=== PATIENT | female | born 1945 | race Caucasian/White ===

== ENCOUNTER 2018-03-31 20:14 | Inpatient (IN) | payer MEDICARE ==
[~2018-03-31] VITALS: Ht 154.9 cm; Wt 56.7 kg
[2018-03-31] MEDS ORDERED: VALS320T2 PO (20:56)
[2018-03-31] MEDS ORDERED: ISOS30TA6 PO (20:56)
[2018-03-31] MEDS ORDERED: SEVEC800 PO (20:56)
[2018-03-31] MEDS ORDERED: XALA2.5OS OD (20:56)
[2018-03-31] MEDS ORDERED: OLAN5TAB2 PO (20:56)
[2018-03-31] MEDS ORDERED: OMEP20 PO (20:56)
[2018-03-31] MEDS ORDERED: DULO30CA2 PO (20:56)
[2018-03-31] MEDS ORDERED: FOLI0.8T2 PO (20:56)
[2018-03-31] MEDS ORDERED: ATOR40TA28 PO (20:56)
[2018-03-31] MEDS ORDERED: AMLO10TA55 PO (20:56)
[2018-03-31] MEDS ORDERED: ASPI-556 PO (20:56)
[2018-03-31] MEDS ORDERED: LINA5TAB PO (20:56)
[2018-03-31] MEDS ORDERED: METO50 PO (20:56)
[2018-03-31 21:45] LABS: BASOPHILS % (AUTO) 0.3 % (0.0-2.0); HEMATOCRIT 33.3 % (36-46); HEMOGLOBIN 11.4 g/dL (12.0-16.0); LYMPHOCYTES # (AUTO) 2.3 K/uL (1.0-4.8); LYMPHOCYTES % (AUTO) 21.4 % (22.0-44.0); MEAN CORPUSCULAR HEMOGLOBIN 31.3 pg (26.0-34.0); MEAN CORPUSCULAR HGB CONC 34.4 G/dL (31.0-37.0); MEAN CORPUSCULAR VOLUME 91 fL (80-100); MONOCYTES # (AUTO) 1.1 K/uL (0.1-1.0); MONOCYTES % (AUTO) 10.4 % (2.0-9.0); NEUTROPHILS % (AUTO) 63.9 % (40.0-70.0); PLATELET COUNT (AUTO) 230 K/uL (150-450); RED BLOOD CELL COUNT(AUTO) 3.65 MIL/uL (4.00-5.20); RED CELL DISTRIBUTION WIDTH 14.5 % (11.5-14.5)
[2018-03-31 22:06] LABS: ALBUMIN 3.2 g/dL (3.4-5.0); BILIRUBIN,TOTAL 0.6 mg/dL (0.1-1.0); CALCIUM, TOTAL 8.6 mg/dL (8.8-10.5); CREATININE 10.42 mg/dL (0.60-1.30)
[2018-03-31 22:40] LABS: POTASSIUM 6.6 mmol/L (3.5-5.1)
[2018-03-31] MEDS ORDERED: SODIUM BICARBONATE [ADULT] 8.4% 50 MEQ/50 ML SYRINGE IVP ONE (23:00)
[2018-03-31] MEDS ORDERED: SODIUM POLYSTYRENE SULFONATE 15 GM/60 ML SUSPENSION BOTTLE PO ONE (23:00)
[2018-03-31] MEDS ORDERED: CALCIUM GLUCONATE 100 MG/ML 10 ML IVP ONE (23:00)
[2018-03-31] MEDS ORDERED: INSULIN REGULAR, HUMAN 100 UNITS/ML IVP ONE (23:00)
[2018-03-31] MEDS ORDERED: DEXTROSE 50%-WATER 25 GM/50 ML SYRINGE IVP ONE (23:00)
[2018-03-31] MEDS ORDERED: ONDANSETRON HCL 4 MG/2 ML VIAL IVP PRN (23:30)
[2018-03-31] MEDS ORDERED: 0.9% SODIUM CHLORIDE 10 ML SYRINGE IVP PRN (23:30)
[2018-04-01] VITALS (11 sets, daily range): BP systolic 138–205; BP diastolic 43–102
[2018-04-01] MEDS ORDERED: SODIUM CHLORIDE 0.9% 1,000 ML IV ONE (01:34)
[2018-04-01] MEDS: ACETAMINOPHEN 325 MG TABLET PO PRN ×2 (03:46→08:13)
[2018-04-01] MEDS ORDERED: MORPHINE SULFATE 4 MG/ML SYRINGE IM ONE (05:30)
[2018-04-01] MEDS ORDERED: MORPHINE SULFATE 4 MG/ML SYRINGE IVP ONE (05:45)
[2018-04-01] MEDS ORDERED: METOPROLOL TARTRATE 5 MG/5 ML VIAL IVP PRN (06:15)
[2018-04-01 07:30] LABS: BASOPHILS % (AUTO) 0.1 % (0.0-2.0); CALCIUM, TOTAL 8.6 mg/dL (8.8-10.5); CREATININE 5.62 mg/dL (0.60-1.30); EOSINOPHILS % (AUTO) 1.9 % (1.0-6.0); HEMATOCRIT 29.4 % (36-46); HEMOGLOBIN 10.3 g/dL (12.0-16.0); LYMPHOCYTES # (AUTO) 1.1 K/uL (1.0-4.8); LYMPHOCYTES % (AUTO) 11.1 % (22.0-44.0); MAGNESIUM 1.9 mg/dL (1.80-2.40); MEAN CORPUSCULAR HEMOGLOBIN 31.5 pg (26.0-34.0); MEAN CORPUSCULAR VOLUME 90 fL (80-100); MONOCYTES # (AUTO) 0.9 K/uL (0.1-1.0); MONOCYTES % (AUTO) 8.8 % (2.0-9.0); NEUTROPHILS # (AUTO) 7.5 K/uL (1.8-7.7); NEUTROPHILS % (AUTO) 78.1 % (40.0-70.0); PLATELET COUNT (AUTO) 197 K/uL (150-450); POTASSIUM 3.8 mmol/L (3.5-5.1); RED BLOOD CELL COUNT(AUTO) 3.26 MIL/uL (4.00-5.20); RED CELL DISTRIBUTION WIDTH 14.5 % (11.5-14.5)
[2018-04-01] MEDS: AmLODIPine BESYLATE 10 MG TABLET PO SCH (08:12)
[2018-04-01] MEDS: OMEPRAZOLE 20 MG CAPSULE PO SCH ×2 (08:12→21:16)
[2018-04-01] MEDS: ISOSORBIDE MONONITRATE 30 MG ER TABLET PO SCH (08:12)
[2018-04-01] MEDS: METOPROLOL TARTRATE 50 MG TABLET PO SCH ×2 (08:12→21:16)
[2018-04-01] MEDS: SEVELAMER CARBONATE 800 MG TABLET PO SCH ×3 (08:12→18:00)
[2018-04-01] MEDS: ASPIRIN 81 MG EC TABLET PO SCH (08:13)
[2018-04-01] MEDS ORDERED: ONDANSETRON HCL 4 MG/2 ML VIAL IVP PRN (09:00)
[2018-04-01] MEDS ORDERED: ZOLPIDEM TARTRATE 5 MG TABLET PO PRN (09:00)
[2018-04-01] MEDS ORDERED: 0.9% SODIUM CHLORIDE 10 ML SYRINGE IVP PRN (09:00)
[2018-04-01] MEDS ORDERED: DEXTROSE 50%-WATER 25 GM/50 ML SYRINGE IVP PRN (10:45)
[2018-04-01] MEDS: OLANZapine 5 MG TABLET PO SCH ×2 (10:48→21:16)
[2018-04-01] MEDS: LinaGLIPtin 5 MG TABLET PO SCH (10:48)
[2018-04-01] MEDS: VITAMIN B COMP/VIT C/FOLIC ACID CAPSULE PO SCH (10:48)
[2018-04-01] MEDS: DULoxetine HCL 30 MG CAPSULE PO SCH (10:48)
[2018-04-01] MEDS: PANTOPRAZOLE SODIUM 40 MG/VIAL IVP SCH (10:48)
[2018-04-01] MEDS: APIXABAN 2.5 MG TABLET PO SCH ×2 (10:49→21:16)
[2018-04-01 14:13] LABS: GLUCOMETER DEV NAME(LOC) 5S 2N; GLUCOSE,POINT OF CARE 131 MG/DL (70-110)
[2018-04-01] MEDS: ATORVASTATIN CALCIUM 40 MG TABLET PO SCH (21:16)
[2018-04-01] MEDS: LATANOPROST 0.005% 2.5 ML OPHTHALMIC SOLUTION OD SCH (21:16)
[2018-04-01] MEDS ORDERED: HydrALAZINE HCL 20 MG/ML VIAL IVP PRN (22:45)
[2018-04-02 01:48] LABS: GLUCOMETER DEV NAME(LOC) 5S 2N; GLUCOSE,POINT OF CARE 119 MG/DL (70-110)
[2018-04-02 01:48] LABS: GLUCOMETER DEV NAME(LOC) 5S 2N; GLUCOSE,POINT OF CARE 156 MG/DL (70-110)
[2018-04-02 04:47] VITALS: BP 163/82
[2018-04-02] MEDS: INSULIN LISPRO 100 UNITS/ML SQ PRN ×2 (06:09→21:36)
[2018-04-02 07:03] LABS: GLUCOMETER DEV NAME(LOC) 5S 2N; GLUCOSE,POINT OF CARE 83 MG/DL (70-110)
[2018-04-02 08:46] VITALS: BP 158/77
[2018-04-02] MEDS: HydrALAZINE HCL 25 MG TABLET PO SCH ×2 (09:00→17:39)
[2018-04-02] MEDS: PANTOPRAZOLE SODIUM 40 MG/VIAL IVP SCH (09:00)
[2018-04-02] MEDS: SEVELAMER CARBONATE 800 MG TABLET PO SCH ×3 (09:04→17:39)
[2018-04-02] MEDS: APIXABAN 2.5 MG TABLET PO SCH ×2 (09:04→21:00)
[2018-04-02] MEDS: VITAMIN B COMP/VIT C/FOLIC ACID CAPSULE PO SCH (09:04)
[2018-04-02] MEDS: OLANZapine 5 MG TABLET PO SCH ×2 (09:04→21:48)
[2018-04-02] MEDS: OMEPRAZOLE 20 MG CAPSULE PO SCH ×2 (09:04→21:48)
[2018-04-02] MEDS: ASPIRIN 81 MG EC TABLET PO SCH (09:04)
[2018-04-02] MEDS: LinaGLIPtin 5 MG TABLET PO SCH (09:04)
[2018-04-02] MEDS: DULoxetine HCL 30 MG CAPSULE PO SCH (09:04)
[2018-04-02] MEDS: ISOSORBIDE MONONITRATE 30 MG ER TABLET PO SCH (09:04)
[2018-04-02] MEDS: AmLODIPine BESYLATE 10 MG TABLET PO SCH (09:04)
[2018-04-02 09:06] LABS: BASOPHILS % (AUTO) 0.3 % (0.0-2.0); EOSINOPHILS % (AUTO) 6.2 % (1.0-6.0); HEMATOCRIT 27.9 % (36-46); HEMOGLOBIN 9.8 g/dL (12.0-16.0); LYMPHOCYTES # (AUTO) 2.6 K/uL (1.0-4.8); LYMPHOCYTES % (AUTO) 28.5 % (22.0-44.0); MEAN CORPUSCULAR HEMOGLOBIN 31.9 pg (26.0-34.0); MEAN CORPUSCULAR HGB CONC 35.1 G/dL (31.0-37.0); MEAN CORPUSCULAR VOLUME 91 fL (80-100); MONOCYTES # (AUTO) 1.1 K/uL (0.1-1.0); MONOCYTES % (AUTO) 11.8 % (2.0-9.0); NEUTROPHILS # (AUTO) 4.8 K/uL (1.8-7.7); NEUTROPHILS % (AUTO) 53.2 % (40.0-70.0); PLATELET COUNT (AUTO) 215 K/uL (150-450); RED BLOOD CELL COUNT(AUTO) 3.08 MIL/uL (4.00-5.20); RED CELL DISTRIBUTION WIDTH 14.5 % (11.5-14.5)
[2018-04-02 09:30] LABS: ALBUMIN 2.6 g/dL (3.4-5.0); BILIRUBIN,TOTAL 0.5 mg/dL (0.1-1.0); CALCIUM, TOTAL 8.2 mg/dL (8.8-10.5); CREATININE 7.29 mg/dL (0.60-1.30); MAGNESIUM 2.1 mg/dL (1.80-2.40); PHOSPHORUS 7.1 mg/dL (2.5-4.9); POTASSIUM 4.7 mmol/L (3.5-5.1); TOTAL PROTEIN, SERUM 7.4 g/dL (6.4-8.2)
[2018-04-02 11:34] VITALS: BP 162/76
[2018-04-02] MEDS: METOPROLOL TARTRATE 50 MG TABLET PO SCH ×2 (12:05→21:31)
[2018-04-02 14:23] LABS: GLUCOMETER DEV NAME(LOC) 5S 2N; GLUCOSE,POINT OF CARE 94 MG/DL (70-110)
[2018-04-02] MEDS ORDERED: LIDOCAINE HCL/PF 1% 2 ML VIAL ONE (14:48)
[2018-04-02] MEDS ORDERED: DiphenhydrAMINE HCL 50 MG/ML VIAL ONE (14:48)
[2018-04-02 15:51] VITALS: BP 161/78
[2018-04-02 20:36] VITALS: BP 133/60
[2018-04-02] MEDS: LATANOPROST 0.005% 2.5 ML OPHTHALMIC SOLUTION OD SCH (21:48)
[2018-04-03] VITALS (7 sets, daily range): BP systolic 93–155; BP diastolic 55–82
[2018-04-03] MEDS: HydrALAZINE HCL 25 MG TABLET PO SCH ×4 (00:09→21:52)
[2018-04-03] MEDS: ATORVASTATIN CALCIUM 40 MG TABLET PO SCH ×2 (00:12→20:18)
[2018-04-03] MEDS: INSULIN LISPRO 100 UNITS/ML SQ PRN (06:10)
[2018-04-03 06:31] LABS: BASOPHILS % (AUTO) 0.3 % (0.0-2.0); EOSINOPHILS % (AUTO) 6.9 % (1.0-6.0); HEMATOCRIT 28.1 % (36-46); LYMPHOCYTES # (AUTO) 2.5 K/uL (1.0-4.8); LYMPHOCYTES % (AUTO) 27.7 % (22.0-44.0); MEAN CORPUSCULAR HEMOGLOBIN 32.2 pg (26.0-34.0); MEAN CORPUSCULAR HGB CONC 35.6 G/dL (31.0-37.0); MEAN CORPUSCULAR VOLUME 91 fL (80-100); MONOCYTES # (AUTO) 1.2 K/uL (0.1-1.0); MONOCYTES % (AUTO) 13.5 % (2.0-9.0); NEUTROPHILS # (AUTO) 4.7 K/uL (1.8-7.7); NEUTROPHILS % (AUTO) 51.6 % (40.0-70.0); PLATELET COUNT (AUTO) 202 K/uL (150-450); RED BLOOD CELL COUNT(AUTO) 3.11 MIL/uL (4.00-5.20); RED CELL DISTRIBUTION WIDTH 13.8 % (11.5-14.5)
[2018-04-03 07:13] LABS: ALBUMIN 2.5 g/dL (3.4-5.0); BILIRUBIN,TOTAL 0.4 mg/dL (0.1-1.0); CREATININE 3.73 mg/dL (0.60-1.30); MAGNESIUM 1.6 mg/dL (1.80-2.40); TOTAL PROTEIN, SERUM 7.1 g/dL (6.4-8.2)
[2018-04-03] MEDS: PANTOPRAZOLE SODIUM 40 MG/VIAL IVP SCH (09:00)
[2018-04-03] MEDS: APIXABAN 2.5 MG TABLET PO SCH ×2 (09:00→20:19)
[2018-04-03] MEDS: SEVELAMER CARBONATE 800 MG TABLET PO SCH ×3 (09:37→18:30)
[2018-04-03] MEDS: METOPROLOL TARTRATE 50 MG TABLET PO SCH ×2 (09:37→20:19)
[2018-04-03] MEDS: OLANZapine 5 MG TABLET PO SCH ×2 (09:38→20:19)
[2018-04-03] MEDS: LinaGLIPtin 5 MG TABLET PO SCH (09:38)
[2018-04-03] MEDS: OMEPRAZOLE 20 MG CAPSULE PO SCH ×2 (09:38→20:18)
[2018-04-03] MEDS: ASPIRIN 81 MG EC TABLET PO SCH (09:38)
[2018-04-03] MEDS: DULoxetine HCL 30 MG CAPSULE PO SCH (09:39)
[2018-04-03] MEDS: VITAMIN B COMP/VIT C/FOLIC ACID CAPSULE PO SCH (09:42)
[2018-04-03] MEDS: ISOSORBIDE MONONITRATE 30 MG ER TABLET PO SCH (09:42)
[2018-04-03] MEDS: AmLODIPine BESYLATE 10 MG TABLET PO SCH (10:48)
[2018-04-03 10:57] LABS: GLUCOMETER DEV NAME(LOC) 5N 1P; GLUCOSE,POINT OF CARE 79 MG/DL (70-110)
[2018-04-03 11:38] LABS: GLUCOMETER DEV NAME(LOC) 5S 2N; GLUCOSE,POINT OF CARE 88 MG/DL (70-110)
[2018-04-03 11:38] LABS: GLUCOMETER DEV NAME(LOC) 5S 2N; GLUCOSE,POINT OF CARE 157 MG/DL (70-110)
[2018-04-03 11:58] LABS: GLUCOMETER DEV NAME(LOC) 5S 1M; GLUCOSE,POINT OF CARE 157 MG/DL (70-110)
[2018-04-03] MEDS: LATANOPROST 0.005% 2.5 ML OPHTHALMIC SOLUTION OD SCH (20:21)
[2018-04-04 00:28] VITALS: BP 134/72
[2018-04-04 04:18] VITALS: BP 114/49
[2018-04-04 07:11] LABS: ALBUMIN 2.4 g/dL (3.4-5.0); BILIRUBIN,TOTAL 0.3 mg/dL (0.1-1.0); CALCIUM, TOTAL 7.7 mg/dL (8.8-10.5); CREATININE 5.29 mg/dL (0.60-1.30); MAGNESIUM 1.7 mg/dL (1.80-2.40); TOTAL PROTEIN, SERUM 6.6 g/dL (6.4-8.2)
[2018-04-04 07:18] LABS: BASOPHILS % (AUTO) 0.2 % (0.0-2.0); EOSINOPHILS % (AUTO) 8.3 % (1.0-6.0); HEMATOCRIT 25.3 % (36-46); HEMOGLOBIN 8.7 g/dL (12.0-16.0); LYMPHOCYTES # (AUTO) 2.8 K/uL (1.0-4.8); LYMPHOCYTES % (AUTO) 33.4 % (22.0-44.0); MEAN CORPUSCULAR HEMOGLOBIN 31.1 pg (26.0-34.0); MEAN CORPUSCULAR HGB CONC 34.5 G/dL (31.0-37.0); MEAN CORPUSCULAR VOLUME 90 fL (80-100); MONOCYTES % (AUTO) 12.1 % (2.0-9.0); NEUTROPHILS # (AUTO) 3.8 K/uL (1.8-7.7); PLATELET COUNT (AUTO) 191 K/uL (150-450); RED BLOOD CELL COUNT(AUTO) 2.81 MIL/uL (4.00-5.20)
[2018-04-04 07:27] LABS: GLUCOMETER DEV NAME(LOC) 5N 2S; GLUCOSE,POINT OF CARE 80 MG/DL (70-110)
[2018-04-04 07:27] LABS: GLUCOMETER DEV NAME(LOC) 5N 1P; GLUCOSE,POINT OF CARE 135 MG/DL (70-110)
[2018-04-04 07:27] LABS: GLUCOMETER DEV NAME(LOC) 5N 1P; GLUCOSE,POINT OF CARE 89 MG/DL (70-110)
[2018-04-04 07:50] VITALS: BP 180/78
[2018-04-04] MEDS: PANTOPRAZOLE SODIUM 40 MG/VIAL IVP SCH (09:00)
[2018-04-04] MEDS: HydrALAZINE HCL 25 MG TABLET PO SCH ×2 (09:00→15:46)
[2018-04-04] MEDS: ASPIRIN 81 MG EC TABLET PO SCH (09:00)
[2018-04-04] MEDS: OLANZapine 5 MG TABLET PO SCH (09:26)
[2018-04-04] MEDS: VITAMIN B COMP/VIT C/FOLIC ACID CAPSULE PO SCH (09:26)
[2018-04-04] MEDS: SEVELAMER CARBONATE 800 MG TABLET PO SCH ×3 (09:26→18:05)
[2018-04-04] MEDS: DULoxetine HCL 30 MG CAPSULE PO SCH (09:27)
[2018-04-04] MEDS: LinaGLIPtin 5 MG TABLET PO SCH (09:27)
[2018-04-04] MEDS: OMEPRAZOLE 20 MG CAPSULE PO SCH (09:27)
[2018-04-04] MEDS ORDERED: EPOETIN ALFA 10,000 UNITS/ML VIAL SQ SCH (11:00)
[2018-04-04 11:17] VITALS: BP 179/77
[2018-04-04 12:32] LABS: GLUCOMETER DEV NAME(LOC) 5N 1P; GLUCOSE,POINT OF CARE 106 MG/DL (70-110)
[2018-04-04] MEDS: ISOSORBIDE MONONITRATE 30 MG ER TABLET PO SCH (13:24)
[2018-04-04] MEDS: METOPROLOL TARTRATE 50 MG TABLET PO SCH (13:24)
[2018-04-04 15:14] VITALS: BP 134/64
[2018-04-04] MEDS: AmLODIPine BESYLATE 10 MG TABLET PO SCH (15:46)
[2018-04-04 20:27] LABS: GLUCOMETER DEV NAME(LOC) 5S 1M; GLUCOSE,POINT OF CARE 136 MG/DL (70-110)
== END 2018-04-04 18:50 | DRG 640 ==
LOC: EMS 20:14 → 5N 23:45
PROVIDERS: ADMIT Internal Medicine; ATTEND Internal Medicine
PROC: 5A1D70Z Performance of Urinary Filtration, Intermittent, Less than 6 Hours Per Day (ICD-10-PCS; principal; 2018-04-01)
PROC: 5A1D70Z Performance of Urinary Filtration, Intermittent, Less than 6 Hours Per Day (ICD-10-PCS; 2018-04-02)
PROC: 5A1D70Z Performance of Urinary Filtration, Intermittent, Less than 6 Hours Per Day (ICD-10-PCS; 2018-04-04)
DX: E87.5 Hyperkalemia (principal); N18.6 End stage renal disease; I13.2 Hypertensive heart and chronic kidney disease with heart failure and with stage 5 chronic kidney disease, or end stage renal disease; G93.41 Metabolic encephalopathy; E11.21 Type 2 diabetes mellitus with diabetic nephropathy; E11.51 Type 2 diabetes mellitus with diabetic peripheral angiopathy without gangrene; I48.0 Paroxysmal atrial fibrillation; E11.22 Type 2 diabetes mellitus with diabetic chronic kidney disease; H54.8 Legal blindness, as defined in USA; I25.10 Atherosclerotic heart disease of native coronary artery without angina pectoris; D63.1 Anemia in chronic kidney disease; E78.00 Pure hypercholesterolemia, unspecified; E78.5 Hyperlipidemia, unspecified; I50.9 Heart failure, unspecified; M54.81 Occipital neuralgia; I25.2 Old myocardial infarction; Z99.2 Dependence on renal dialysis; Z91.15 Patient's noncompliance with renal dialysis
CPT/HCPCS: 70551; 82962; 83735; 84100; 87040; 87081; 87340; 93005; 93306; 96374; 96375; 99291; C9113; J0360; J0610; J0885; J1200; J1815; J2270; J2405; J3490; J7030